=== PATIENT | male | born 1950 | race Two or more races ===

== ENCOUNTER 2017-11-11 21:07 | Emergency (ER) | payer OTHER ==
[~2017-11-11] VITALS: Ht 165.1 cm; Wt 75.7 kg
--- NOTE | 2017-11-11 21:20 | NUR ---
TO BED 7 A 67 YO MALE PATIENT BIB SELF C/O FEVER AND HEMATURIA X 1 DAY. PATIENT IS AAOX4, BREATHING EVEN AND UNLABORED. VSS. SKIN WARM AND DRY. GOWNED. COMFORT MEASURE RENDERED.
[2017-11-11 23:23] LABS: APPEARANCE,URINE CLOUDY (CLEAR); BILIRUBIN,URINE 2+ (NEGATIVE); BLOOD, URINE 3+ Ery/uL (NEGATIVE); COLOR,URINE RED (YELLOW); KETONES,URINE 1+ (NEGATIVE); LEUKOCYTE ESTERASE ,URINE 3+ (NEGATIVE); NITRITE, URINE POSITIVE (NEGATIVE); PROTEIN,URINE 3+ mg/dl (NEGATIVE); UGLUCOSE NEGATIVE (NEGATIVE)
[2017-11-11] MEDS ORDERED: CIPROFLOXACIN HCL 500 MG TABLET ONE (23:39)
[2017-11-11 23:41] LABS: RBC,URINE TOO NUMEROUS TO COUN /HPF (0-2)
[2017-11-11 23:42] LABS: BACTERIA,URINE M /HPF (None Seen); SQUAMOUS EPITHELIAL CELL,UR Few /HPF (None Seen); WBC,URINE 51-80 /HPF (0-3)
--- NOTE | 2017-11-11 23:46 | NUR ---
Patient discharged to home in stable condition. Written and verbal after care instructions given. Patient verbalizes understanding of instruction. Patient is ambulatory with steady gait, accompanied by family. VSS. Nad noted no dc. No further complaints.
[2017-11-11 23:47] VITALS: BP 124/74
[2017-11-12] MEDS ORDERED: CIPROFLOXACIN HCL 500 MG TABLET PO ONE
== END 2017-11-11 23:48 | disposition home or self-care (01) ==
LOC: ER 21:10
DX: N39.0 Urinary tract infection, site not specified (principal); E11.9 Type 2 diabetes mellitus without complications
CPT/HCPCS: 81001; 87077; 87086; 87186; 99284; A4606; Z7610; 81000-TC